=== PATIENT | male | born 1960 | race Caucasian/White ===

== ENCOUNTER 2017-05-05 05:35 | Emergency (ER) | payer MEDICAID ==
[~2017-05-05] VITALS: Ht 185.4 cm; Wt 94.8 kg
--- NOTE | 2017-05-05 06:08 | Emergency Room Report ---
History of Present Illness General Chief Complaint: General Complaint Source: Patient, Medical Record Present Illness HPI Is a 56-year-old gentleman who is in a [facility]dc for rehabilitation for IV antibiotics for sternal infection. He was sent in for PICC line change. His PICC line was clogged. Onset today. No fever chills no nausea vomiting. No swelling. No other complaint. Allergies: Coded Allergies: No Known Allergies (Unverified , 05/05/17) Patient History Past Medical History: see triage record, old chart reviewed Past Surgical History: other Pertinent Family History: none Social History: Denies: smoking Immunizations: other Reviewed Nursing Documentation: PMH: Agreed, PSxH: Agreed Nursing Documentation-PMH Past Medical History: No History, Except For Review of Systems Eye: Denies: blurred vision, eye pain ENT: Denies: ear pain, nose congestion, throat swelling Respiratory: Denies: cough, shortness of breath Cardiovascular: Denies: chest pain, palpitations Gastrointestinal: Denies: abdominal pain, diarrhea, nausea, vomiting Musculoskeletal: Denies: back pain, joint pain Skin: Denies: rash Neurological: Denies: headache, numbness Endocrine: Denies: increased thirst, increased urine Hematologic/Lymphatic: Denies: easy bruising All Other Systems: negative except mentioned in HPI Physical Exam Vital Signs Date Time Temp Pulse Resp B/P Pulse Ox O2 Delivery O2 Flow Rate FiO2 05/05/17 05:35 97.7 98 16 153/95 98 Room Air vitals normal of hypertension Sp02 EP Interpretation: reviewed, normal General Appearance: well appearing, no apparent distress, alert Head: normocephalic, atraumatic Eyes: bilateral eye EOMI, bilateral eye PERRL ENT: hearing grossly normal, normal pharynx Neck: full range of motion, supple, no meningismus Respiratory: chest non-tender, lungs clear, normal breath sounds Cardiovascular #1: regular rate, rhythm, no murmur Gastrointestinal: normal bowel sounds, non tender, no mass, no organomegaly, no bruit, non-distended Musculoskeletal: back normal, gait/station normal, normal range of motion, other - Left upper arm with PICC line. No edema. Sensation normal. Psychiatric: mood/affect normal Skin: warm/dry Procedures Additional Procedure Procedure Narrative Procedure: PICC line evaluation Indication: PICC line malfunction Description: Under sterile condition, I evaluated the PICC line. Initially it would not flush. I removed the caps. The line itself flushed and aspirated easily. I then tried to flush the caps. They would not flush. I changed the caps and they flushed easily. Patient procedure without a problem. Medical Decision Making Diagnostic Impression: Primary Impression: Occluded PICC line Qualified Codes: T82.898A - Other specified complication of vascular prosthetic devices, implants and grafts, initial encounter ER Course Patient with a simple PICC line occlusion secondary to the caps being occluded. This is probably from his medication and blood. PICC line itself is functioning fine. No edema or thrombosis. Last Vital Signs Date Time Temp Pulse Resp B/P Pulse Ox O2 Delivery O2 Flow Rate FiO2 05/05/17 05:35 97.7 98 16 153/95 98 Room Air Status: improved Disposition: HOME, SELF-CARE Condition: Stable Additional Instructions: followup with your Dr. in 7 days. Return if worse. FREDY NIELSON M.D. May 05, 2017 06:08
[2017-05-05 07:08] VITALS: BP 144/89
[2017-05-05 08:18] VITALS: BP 135/90
== END 2017-05-05 08:26 | disposition home or self-care (01) ==
LOC: EDBD 05:35 → EMR 05:40
DX: T82.898A Other specified complication of vascular prosthetic devices, implants and grafts, initial encounter (principal); X58.XXXA Exposure to other specified factors, initial encounter; Y93.9 Activity, unspecified; Y92.9 Unspecified place or not applicable
CPT/HCPCS: 99283